=== PATIENT | male | born 1980 | race Caucasian/White ===

== ENCOUNTER 2024-10-06 10:14 | Emergency (ER) | payer BC, SELFPAY ==
--- NOTE | ~2024-10-06 | XR_ITS ---
XR foot LT min 3V 10/06/2024 10:50 INDICATION: Left foot pain and swelling PROCEDURE: 4 views left foot COMPARISON: No prior studies for comparison. FINDINGS: Fracture, dislocation or subluxation is not identified. Lisfranc joint intact. The soft tissues appear within normal limits. No foreign bodies are identified. IMPRESSION: 1: NO ACUTE BONE OR JOINT ABNORMALITY IDENTIFIED. Reviewed, dictated and finalized at location O.
--- NOTE | 2024-10-06 10:25 | ED.SKABFB ---
HPI - Skin/Abscess/Foreign Bdy General Chief complaint: Skin/Abscess/Foreign Body Stated complaint: L foot pain Time Seen by Provider: 10/06/24 10:23 Source: patient Mode of arrival: ambulatory Limitations: no limitations History of Present Illness HPI narrative: Mamadou is a 44-year-old male patient presenting to the clinic today with complaints of left plantar 1st metatarsal pain x1 week. A week ago he was playing in the [employer] with the kids and possibly injured his foot. He reports it has become more sore and red over the week. Area is tender to palpation. Is having pain with flexion and extension of the left great toe. No personal history of gout. Has not taken any Tylenol or Motrin so he wouldn't mask the signs of a fever. Related Data Allergies Allergy/AdvReac Type Severity Reaction Status Date / Time No Known Allergies Allergy Verified 10/06/24 10:29 Review of Systems Review of Systems: Pertinent positives per HPI. Patient denies any fever, chills, rash, headache, visual changes, dizziness, cough, runny nose, sore throat, shortness of breath, chest pain, palpitations, nausea, vomiting, diarrhea, constipation, abdominal pain, or any urinary issues. PMFSH Comments At the time of my signature, I reviewed and agree with the nursing past medical, surgical, social, and family history. There is no relevant family history pertinent to the patient complaint. Exam Narrative: General: Well-developed, well nourished, in no apparent distress Head: Normocephalic, atraumatic. Cardio: Regular rate and rhythm, s1 and s2 normal, no murmur appreciated. Resp: Clear to auscultation bilaterally, no rhonchi, rales, wheezing or rubs. Musculoskeletal: No deformity, redness with mild swelling over the plantar aspect of the distal 1st metatarsal with tenderness to palpation, pain with flexion and extension of the left great toe over the distal metatarsal, is able to flex and extend the toe against resistance, grossly normal range of motion, muscle strength strong and equal, peripheral pulse strong, no edema, no cyanosis, normal gait and station Course Course Emergency Course: Portions of this record may have been created with voice recognition software. Level of Care: Express Care Visit Vital Signs Vital signs: Vital Signs Temperature 36.2 C L 10/06/24 10:31 Pulse Rate 67 10/06/24 10:31 Respiratory Rate 18 10/06/24 10:31 Blood Pressure 151/87 H 10/06/24 10:31 Pulse Oximetry 100 10/06/24 10:31 Oxygen Delivery Room Air 10/06/24 10:31 Temperature 36.2 C L 10/06/24 10:31 Pulse Rate 67 10/06/24 10:31 Respiratory Rate 18 10/06/24 10:31 Blood Pressure 151/87 H 10/06/24 10:31 Pulse Oximetry 100 10/06/24 10:31 Oxygen Delivery Room Air 10/06/24 10:31 Vital signs reviewed MDM - Skin/Abscess/Foreign Bdy MDM Narrative Medical decision making narrative: At the time of visit patient is resting comfortably on the exam table. Patient appears to be nontoxic. Complaints of left plantar 1st metatarsal pain x1 week. A week ago he was playing in the [employer] with [place] and possibly injured his foot. He reports it has become more sore and red over the week. Area is tender to palpation. Is having pain with flexion and extension of the left great toe. No personal history of gout. Has not taken any Tylenol or Motrin so he wouldn't mask the signs of a fever. X-ray of the left foot was ordered. Diagnostics: Left foot x-ray was performed and negative for any sign of fracture or malalignment. Does show a possible ossification on the lateral view of the foot without any obvious donor site. No history of foreign body. Plan: I suspect patient has left foot pain was swelling over the plantar aspect of the distal left 1st metatarsal. Ossification seen in that area. No recent or obvious wound to be concerned about foreign body. No history of previous fracture. Pain and swelling possibly due to inflammation of the tendon-gout arthritis less likely. Will send in prescription for Medrol Dosepak. Supportive measures were discussed with the patient and they voiced understanding discharge instructions and agrees to treatment plan. Return precautions reviewed Differential Diagnosis Differential diagnosis: Likely cellulitis and other (Metatarsal fracture, tendon rupture, arthritis, gout, soft tissue swelling) Imaging Data Radiologist's impression: ITS Impressions Foot X-Ray 10/06/24 10:54 IMPRESSION: 1: NO ACUTE BONE OR JOINT ABNORMALITY IDENTIFIED. Discharge Plan Discharge Clinical Impression: Acute foot pain Patient Disposition: Home Condition: Stable Instructions: Antibiotic Form, Swollen Joint (ED) Additional Instructions: Rest, ice, elevate, and wear postop shoe Take Medrol Dosepak as prescribed Tylenol/motrin for pain as discussed. Gradually bear weight No running or sports until healed. Follow up with your PCP if symptoms persist more than 1 week. Patient Language: Singaporean Prescriptions: New methylprednisolone [Medrol (Jake)] 4 mg tablets,dose pack See Rx Instructions PO .COMPLEX Qty: 21 0RF Rx Instructions: orally per package directions Follow-up/Referrals: Marge,Ortiz Cook MD [Primary Care Provider, Unknown] - 3 Days Pablo Quiñones MD [Physician, Orthopedics] - 3 Days Referral Note: Pain and swelling over the plantar aspect of the left distal 1st metatarsal. Pain with flexion and extension of the left great toe, Possible ossification seen over the lateral and obliques views of x-ray. No history of fracture, foreign body, or wound. Clinical Impression: Acute foot pain Time of Disposition: 11:10 Quality NIHSS Nursing Documentation ED NIHSS nursing documentation: reviewed/agree
--- OUTSIDE RECORDS SUMMARY | 2024-10-06 10:29 | XMS_ITS | Clinical Summary ---
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 Name Role Phone JaminBimal schultz Ortiz Primary Care Provider Allergies No known active allergies Medications No known medications Social History Tobacco Use Types Packs/Day Years Used Date Smoking Tobacco: Never Smokeless Tobacco: Never Alcohol Use Standard Drinks/Week Comments Yes 0 (1 standard drink = 0.6 oz pur e alcohol) socially Sex and Gender Information Value Date Recorded Sex Assigned at Not on file Legal Sex Male 1:58 PM [employer]IONAL RECR[employer] Gender Identity Not on file Sexual Orientation Not on file Last Filed Vital Signs Vital Sign Reading Time Taken Comments Blood Pressure 133/68 03/09/2018 2:03 PM [employer]IONAL RECRUITER Pulse - - Temperature 36.3 C (97.4 F) 03/09/2018 2:03 PM REGIONAL RECRUITER Respiratory Rate 18 03/09/2018 2:03 PM REGIONAL RECRUITER Oxygen Saturation 98% 03/09/2018 2:03 PM REGIONAL RECRUITER Inhaled Oxygen Concentration - - Weight 86.2 kg (190 lb) 03/09/2018 2:03 PM REGIONAL RECRUITER Height 177.8 cm (5' 10) 03/09/2018 2:03 PM REGIONAL RECRUITER Body Mass Index 27.26 03/09/2018 2:03 PM REGIONAL RECRUITER Plan of Treatment Health Maintenance Due Date Last Done Comments DTAP/TDAP/TD VACCINES (1 - Tdap) 1998 HEPATITIS B VACCINES (1 of 3 - 19+ 3-dose series) 06/1997 HPV VACCINES (1 - 3-dose SCDM series) 2006 COLORECTAL SCREENING 01/13/2024 Colorectal Cancer Screening 01/13/2024 FIT-DNA Q 3 years 01/13/2024 FIT/FOBT Q 1 year 01/13/2024 Flex Sig/CT Colonography Q 5 years 01/13/2024 INFLUENZA VACCINE (#1) 2024 Insurance [facility] BLUE ACCESS CHOICE Care Teams Nuclear Equipment Research Engineer Relationship Specialty Start Date End Date Bimal Payton DO [address] [place] [address] PCP - General Internal Medicine 03/09/18
[2024-10-06 10:31] VITALS: BP 151/87; PULSE 67; RESP 18; TEMP 36.2; O2SAT 100
== END 2024-10-06 11:19 | disposition home or self-care (01) ==
PROVIDERS: Emergency Provider Nurse Practitioner Family; PCP Family Medicine Sports Medicine
DX: M79.672 Pain in left foot (principal)
CPT/HCPCS: 73630; 99203; G0463